=== PATIENT | female | born 1975 | race Caucasian/White ===

== ENCOUNTER 2019-07-10 08:36 | Day surgery (SDC) | payer BC ==
[~2019-07-10 08:36] MED LIST: CEFAZOLIN 1 Gram 1 GM/50 ML BAG IVPB ONE; CEFAZOLIN 2 Gram 2 GM/50 ML BAG IVPB ONE; FAMOTIDINE 20MG TABLET PO ONE; MECLIZINE 25 MG TABLET PO SCH; METOCLOPRAMIDE 10 MG TABLET PO ONE; SCOPOLAMINE 1 PATCH TDSY TD ONE; VANCOMYCIN 1GM/200ML PREMIX 1 GM/200 ML PIGGYBACK IVPB ONE
[2019-07-10] MEDS ORDERED: PROPOFOL 10 MG/ML VIAL IV ONE ×2 (08:37)
[2019-07-10] MEDS ORDERED: DEXAMETHASONE 4 MG/ML 1ML VIAL IVP ONE (08:37)
[2019-07-10] MEDS ORDERED: LIDOCAINE 2% MDV (20MG/ML) 20ML VIAL IV ONE ×2 (08:37)
[2019-07-10] MEDS ORDERED: MIDAZOLAM HCL 2MG/2ML VIAL IV ONE ×2 (08:37)
[2019-07-10] MEDS ORDERED: *PACU ONLY* KETAMINE HCL 10 MG/ML (20ML) VIAL IV ONE ×2 (08:37)
[2019-07-10] MEDS ORDERED: FENTANYL PF 100MCG/2ML VIAL IV ONE ×2 (08:37)
[2019-07-10] MEDS ORDERED: ROPIVACAINE HCL (NAROPIN) /PF 5MG/ML 20ML VIAL IV ONE (08:37)
[2019-07-10 09:34] LABS: ABO GROUP A; ANTIBODY SCREEN NEGATIVE (NEGATIVE); RH TYPE POSITIVE
[2019-07-10] MEDS ORDERED: RINGERS SOLUTION,LACTATED 1,000 ML IV ONE ×3 (09:40→12:52)
[2019-07-10] MEDS ORDERED: TRANEXAMIC ACID 1,000 MG/10 ML ML IU ONE (11:20)
[2019-07-10] MEDS ORDERED: TRANEXAMIC ACID 1,000 MG/10 ML ML IV ONE (11:20)
[2019-07-10] MEDS ORDERED: BUPIVACAINE 0.5% W/EPI MPF 30 ML VIAL IU ONE (11:20)
[2019-07-10] MEDS ORDERED: ACETAMINOPHEN W/ CODEINE 300MG/60MG TABLET PO PRN ×2 (12:38)
[2019-07-10] MEDS ORDERED: NALOXONE 0.4 MG/1 ML VIAL IVP PRN (12:38)
[2019-07-10] MEDS ORDERED: AL HYDROX/MAG HYDROX 30ML UD PO PRN (12:38)
[2019-07-10] MEDS ORDERED: ONDANSETRON HCL IV 4 MG/2 ML VIAL IVP PRN ×2 (12:38→13:42)
[2019-07-10] MEDS ORDERED: HYDROMORPHONE HCL 2 MG/ML VIAL IM PRN (12:38)
[2019-07-10] MEDS ORDERED: ZOLPIDEM TARTRATE 5 MG TABLET PO PRN (12:38)
[2019-07-10] MEDS ORDERED: DIPHENHYDRAMINE HCL 25 MG CAPSULE PO PRN (12:38)
[2019-07-10] MEDS ORDERED: MAGNESIUM HYDROXIDE 30 ML UDC PO PRN (12:38)
[2019-07-10] MEDS ORDERED: KETOROLAC 30 MG/ML VIAL IVP PRN (12:38)
[2019-07-10] MEDS ORDERED: TRAMADOL HCL 50 MG TABLET PO PRN (12:38)
[2019-07-10] MEDS ORDERED: ACETAMINOPHEN 325 MG TAB PO PRN (12:38)
[2019-07-10] MEDS ORDERED: BISACODYL 10 MG SUPP RC PRN (12:38)
[2019-07-10] MEDS ORDERED: FENTANYL CITRATE/PF (PACU) 50 MCG/ML VIAL IVP PRN (13:42)
[2019-07-10] MEDS ORDERED: HYDROMORPHONE HCL 2 MG/ML VIAL IVP PRN (13:42)
[2019-07-10] MEDS: HYDROCODONE/APAP 10/325 TABLET PO PRN ×4 (15:01→23:58)
[2019-07-10] MEDS ORDERED: HYDROCHLOROTHIAZIDE 25 MG TABLET PO SCH (15:30)
[2019-07-10] MEDS ORDERED: LOSARTAN POTASSIUM 25 MG TABLET PO SCH (15:30)
--- NOTE | 2019-07-10 17:06 | Rehab Evaluation ---
Patient Information - Patient Information Diagnosis: R Knee DJD Ordered Treatment: PT Evaluate and Treat Status: Initial Evaluation Surgery: Yes (R TKA) Date of Surgery: 07/10/19 Past Medical/Surgical Hx: PAST MEDICAL/SURGICAL HISTORY Past Surgical History AVIS UTERINE ABLATION D AND C PMH - Respiratory Hx Respiratory Disorders Yes Hx Bronchitis Yes Hx of SOB Yes: WITH EXERTION D/T WEIGHT PMH - Cardiovascular Hx Cardiovascular Disorders Yes Hx Edema Yes: LE'S Hx Hypertension Yes: ON MEDS WITH GOOD CONTROL Exercise Tolerance Fair PMH - Neuro Hx Neurological Disorders Yes Hx Dizziness Yes: VERTIGO Hx Headaches Yes: WITH VERTIGO PMH - GI Hx Gastrointestinal Disorders Yes Hx Gastroesophageal Reflux Yes: AT TIMES PMH - Hx Genitourinary Disorders Yes Comment: PT HAD ABLATION AND D AND C PMH - Endocrine Hx Endocrine Disorders No PMH - Musculoskeletal Hx Musculoskeletal Disorders Yes Hx Arthritis Yes: KNEES PMH - Psych Hx Psychiatric Problems No PMH - Hematology/Oncology Hx Hematology/Oncology Yes Disorders Hx Anemia Yes: HX OF BEFORE UTERINE ABLATION Hx Bruising Yes: BRUISES EASILY Premorbid Status: Detail (Patient was independent in ADLs prior to surgery.) Social History: Detail (Patient lives in a 2-story home with her significant other. She said that she will be staying in the living room for a couple of days instead of using her bathroom and bedroom upstairs. There is a flight of 13 stairs to the upstairs and 3 stairs to enter. There are no railings at the entrance. There is a half bath downstairs and a full bath upstairs. Patient stated that she will use the half bath downstairs when she first returns home to wash up. In the upstairs bathroom there is a tub/shower combination with no grab bars or hand held shower head. There is a standard height toilet in both bathrooms. In the half bath she said that there is the counter and sink for her to hang onto. She has a front-wheeled walker available to use. 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 Her family was in the room with her and the nursing staff was notified of her position.) Subjective Information - Subjective Information Per Patient (Patient reported that she had 4-5/10 pain in her R knee.) Objective Data - Pain Pain Present: Yes (R knee) Pain Scale Used: Numeric (1 - 10) (4-5/10) - Mental Status Patient Orientation: Oriented x3 - Visual Perception Appears within normal limits for therapeutic activities - ROM Not within normal limits (R knee ROM is limited as expected s/p R TKA procedure. R hip and ankle, and L LE AROM is within normal limits for functional activities.) - Strength/Tone Not within normal limits (R knee strength is limited as expected s/p R TKA procedure. R hip and ankle, and L LE strength is within normal limits for functional activities.) - Coordination Appears within normal limits for therapeutic activities - Bed Mobility Independent (Patient was independent in moving herself up in bed.) - Transfers Needs Assist (Patient required mod assist of 1 to move her R leg in and out of bed when moving from supine to sit and sit to supine. She was independent in sit to stand and stand to sit.) - Balance Balance Sitting: Good Balance Standing: Good - Sensation Intact - Gait Detail (Patient ambulated 20 feet to the bathroom and back to her bed with her front-wheeled walker and contact guard of 1.) Therapy Assessment - Therapy Assessment Detail (Patient presents with decreased R knee ROM, decreased R knee strength, and gait abnormalities that make her a good candidate for inpatient therapy. She will progress towards meeting her inpatient goals at the time of discharge tomorrow.) Problem List - Problem List Physical Therapy Problem List: Detail (1. Gait abnormalities 2. Decreased R knee strength 3. Decreased R knee ROM 4. R knee pain 5. Decreased tolerance for stairs) Goals - Goals Physical Therapy Goals: 1. Patient will be independent and demonstrate correct technique of HEP exercises to improve knee ROM and strength following discharge. 2. Patient will be able to ambulate household distances independently with a front-wheeled walker to get around her home. 3. Patient will be able to ascend and descend 3 stairs using correct technique with supervision to get in and out of her home. Prognosis - Prognosis Good Plan - Plan Physical Therapy Plan: Patient will be seen 1-2x, tomorrow, for gait training, stair training, HEP instruction, and therapeutic exercises and activities.
[2019-07-10] MEDS: POTASSIUM CHLORIDE/D5-0.9%NACL 20 MEQ/1,000 ML BAG IV SCH ×2 (19:52→21:32)
[2019-07-10] MEDS: CEFAZOLIN 2 Gram 2 GM/50 ML BAG IVPB SCH (19:56)
[2019-07-10] MEDS: DOCUSATE SODIUM 100 MG CAPSULE PO SCH (21:32)
[2019-07-11] MEDS: CEFAZOLIN 2 Gram 2 GM/50 ML BAG IVPB SCH ×3 (04:13→12:00)
[2019-07-11] MEDS: HYDROCODONE/APAP 10/325 TABLET PO PRN ×3 (04:23→13:03)
[2019-07-11] MEDS: POTASSIUM CHLORIDE/D5-0.9%NACL 20 MEQ/1,000 ML BAG IV SCH (05:14)
[2019-07-11 07:09] LABS: HEMATOCRIT 38.9 % (35.0-47.0); HEMOGLOBIN 12.2 gm/dl (11.6-16.0)
[2019-07-11 07:33] LABS: BLOOD UREA NITROGEN 9 mg/dL (6-20); CREATININE 0.9 mg/dL (0.5-0.9); EST GLOMERULAR FILTRATION RATE > 60 mL/min; GLUCOSE,RANDOM 120 mg/dL (74-109)
--- NOTE | 2019-07-11 08:10 | Operative Note ---
DATE OF SURGERY: 07/10/2019 PREOPERATIVE DIAGNOSIS: End-stage arthrosis of the right knee. POSTOPERATIVE DIAGNOSIS: End-stage arthrosis of the right knee. OPERATION: Cemented right total knee arthroplasty using De Leon and Nephew components with a size 4 Oxinium Legion femoral component, a size 3 stemmed tibia baseplate, an 11 mm lipped tibial insert. The patella was not resurfaced because it was too small. STAFF SURGEON: Jose Nazario MD ANESTHESIA: Spinal. PREPARATION: Chloraprep. INDIVIDUAL CONSIDERATIONS: This lady was morbidly obese with a body mass index of above 50%. This required extra time and it was very difficult to close and very difficult to expose. JAILKEEPER: Mrs. Olinda Liang PROCEDURE: The patient was taken to the operating room, placed supine on the operating room table. She had a successful induction of a spinal anesthetic. The right lower extremity was prepped and draped in the usual fashion. The limb was elevated and tourniquet was inflated to 250 mmHg. The patient had a midline approach to the knee. Sharp dissection carried down through skin and subcutaneous tissue. Small veins were coagulated with a Bovie. The subcu up top was almost 5 inches thick. A medial arthrotomy was performed. The patella was everted and the knee was flexed. The patient had exposed bone primarily in medial compartment, some in the notch. Patella had chondromalacia but it was otherwise intact but was small. Fat pad was resected, ACL was sacrificed, and provisional anterior meniscectomies were performed. The capsule was released from the medial proximal tibia. The initial femoral pilot boat deckhand hole was then made freehand. The intramedullary femoral cutting jig was placed. It was cut in 7.0 degrees of valgus and adjusted for rotation and secured with pins for a 10 mm resection. The initial transverse cut was then made. The skin guide was placed in the anterior and posterior pilot boat deckhand holes. It was found that a size 4 would be appropriate. The anterior and posterior cuts were made followed by chamfer cuts. The guide that was used was in 3 degrees of external rotation for the lesion. After removing osteophytes, and a size 4 trial was placed and found to fit well. The tibia was brought forward, and the remainder of the meniscal remnants removed with a Bovie. The extraarticular tibial cutting jig was placed. It was cut in neutral with a 3-degree AP slope. It was set for a 9 mm resection keyed off the high lateral side and secured with pins. When cutting the tibia, care was taken to preserve the PCL insertion on the tibia. It was found that a size 3 trial fit appropriately. It was adjusted for rotation and secured with pins. With the 11 mm trial and femoral trial, there was excellent motion and stability. Ligamentous balance and rotation alignment were thought to be normal. Femoral pilot boat deckhand holes were impacted and the tibial keel stamp was impacted, and these trial components were removed. The patient had a sufficient PCL. The tourniquet was let down and hemostasis was obtained with a Bovie. The tourniquet was then placed back up again. The knee was then thoroughly irrigated out with pulsatile Betadine and saline to remove any visual or palpable debris. The patient's patella was too small to cut. She was morbidly obese and young and I thought that it was just not going to hold up long-term. She was young and if it needed to be done years from now, maybe after she lost some weight in her 50s, maybe it could be done but at this point it was going to be impossible to safely resurface it. After the bony surfaces were dried, a size 3 stemmed tibia baseplate was cemented into place followed by impaction of the 11 mm lipped highly crosslinked tibial insert followed by cementing in the size 4 Oxinium femur. The implant surfaces were compressed, excess cement was removed. After the cement had set, there was excellent motion and stability. Ligamentous balance, rotation alignment, and patellofemoral tracking were normal. No lateral release was required. Thorough irrigation again to remove any visual or palpable debris. Tourniquet was let down. Hemostasis was obtained with a Bovie. The periosteum and subcu were infiltrated with 30 mL of 0.5% Marcaine with epinephrine. The capsule was then closed with a running #2 quill, subcu was closed with running multiple layers of 0 quill, skin was closed with faheem. I mixed 1 g of tranexamic acid with 30 mL of saline and injected into the knee through a sterile 18-gauge needle, and a sterile bulky compressive VA-type dressing was applied. The patient tolerated the procedure well. Needle and sponge counts were correct. Estimated blood loss was 200 mL. We will check a hemoglobin in the morning. There were no complications. [facility]
--- NOTE | 2019-07-11 08:31 | Rehab Evaluation ---
Patient Information - Patient Information Diagnosis: R Knee DJD Ordered Treatment: OT Evaluate and Treat Status: Initial Evaluation Surgery: Yes (R TKA) Date of Surgery: 07/10/19 Past Medical/Surgical Hx: PAST MEDICAL/SURGICAL HISTORY Past Surgical History AVIS UTERINE ABLATION D AND C PMH - Respiratory Hx Respiratory Disorders Yes Hx Bronchitis Yes Hx of SOB Yes: WITH EXERTION D/T WEIGHT PMH - Cardiovascular Hx Cardiovascular Disorders Yes Hx Edema Yes: LE'S Hx Hypertension Yes: ON MEDS WITH GOOD CONTROL Exercise Tolerance Fair PMH - Neuro Hx Neurological Disorders Yes Hx Dizziness Yes: VERTIGO Hx Headaches Yes: WITH VERTIGO PMH - GI Hx Gastrointestinal Disorders Yes Hx Gastroesophageal Reflux Yes: AT TIMES PMH - Hx Genitourinary Disorders Yes Comment: PT HAD ABLATION AND D AND C PMH - Endocrine Hx Endocrine Disorders No PMH - Musculoskeletal Hx Musculoskeletal Disorders Yes Hx Arthritis Yes: KNEES PMH - Psych Hx Psychiatric Problems No PMH - Hematology/Oncology Hx Hematology/Oncology Yes Disorders Hx Anemia Yes: HX OF BEFORE UTERINE ABLATION Hx Bruising Yes: BRUISES EASILY Premorbid Status: Detail (Patient was independent with mobility and all IADLs prior to surgery.) Social History: Detail (Patient lives in a 2-story home with her significant other and 5 children. She said that she will be staying in the living room for a couple of days. She has 2 steps at the entrance and no railings. There is a half bath downstairs and a full bath upstairs. Patient stated that she will use the half bath downstairs when she first returns home to wash up. In the upstairs bathroom there is a tub/shower combination with no grab bars or hand held shower head. There is a standard height toilet in both bathrooms. In the half bath she said that there is the counter and sink for her to hang onto. She has a front- wheeled walker available to use. 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 Her family will be able to assist with all tasks following discharge.) Precautions: [place], Fall, Other (WBAT on R LE) - Time With Patient Total Time Spent With Patient (Min): 35 Treatment Procedures: Detail (OT eval low complexity) Subjective Information - Subjective Information Per Patient Objective Data - Pain Pain Present: Yes (-02/28) - Mental Status Patient Orientation: Oriented x3 - Visual Perception Appears within normal limits for therapeutic activities - ROM Within normal limits (Nigel UE AROM WNL) - Strength/Tone Within normal limits (Nigel UE strength WNL) - Coordination Appears within normal limits for therapeutic activities - Bed Mobility Independent (Ind with supine to sit) - Transfers Independent (Ind with sit to stand from EOB and toilet heights.) - Balance Balance Sitting: Good Balance Standing: Good - Sensation Intact - Gait Detail (Pt ambulating to bathroom with 2 wheeled walker and supervision.) - ADL's/IADL's Detail (Pt educated and able to demonstrate learning of modified LE dressing techniques including doffing briefs and donning sol sock (with assist), underwear, PJ bottoms and slip on tennis shoes. Reviewed kitchen and shower safety and modifications, pt verbalized understanding.) Therapy Assessment - Therapy Assessment Detail (Pt is Ind with modified LE dressing techniques.) Problem List - Problem List Physical Therapy Problem List: Detail (1. Gait abnormalities 2. Decreased R knee strength 3. Decreased R knee ROM 4. R knee pain 5. Decreased tolerance for stairs) Occupational Therapy Problem List: Detail (No current IP OT problems identified.) Goals - Goals Physical Therapy Goals: 1. Patient will be independent and demonstrate correct technique of HEP exercises to improve knee ROM and strength following discharge. 2. Patient will be able to ambulate household distances independently with a front-wheeled walker to get around her home. 3. Patient will be able to ascend and descend 3 stairs using correct technique with supervision to get in and out of her home. Occupational Therapy Goals: No current IP OT goals identified. Prognosis - Prognosis Good Plan - Plan Physical Therapy Plan: Patient will be seen 1-2x, tomorrow, for gait training, stair training, HEP instruction, and therapeutic exercises and activities. Occupational Therapy Plan: No further IP OT recommended. Pt discharged from OT services. Thank you for this referral.
[2019-07-11] MEDS: DOCUSATE SODIUM 100 MG CAPSULE PO SCH (09:10)
[2019-07-11] MEDS ORDERED: FERROUS SULFATE 325 MG TAB PO SCH (10:00)
[2019-07-11] MEDS ORDERED: RIVAROXABAN 10 MG TABLET PO SCH (10:00)
--- NOTE | 2019-07-11 12:10 | Physical Therapy Tx Note ---
Physical Therapy Tx Note - Treatment Note Tolerated: Good Total Time Spent With Patient: 30 Physical Therapy Tx Note: Detail (Patient reported 7/10 pain in her R knee. She ambulated 60 feet using the front-wheeled walker independently using WBAT on the R LE. She completed stair training over 3 stairs with good technique with supervision. Patient required minimal assistance with her R LE moving it into bed. In her room, her HEP was reviewed with her and patient demonstrated good technique and understanding of all exercises. The patient was left in bed with her call light and bedside table within reach. The nursing staff was notified of her position.) Physical Therapy Problem List: Detail (1. Gait abnormalities 2. Decreased R knee strength 3. Decreased R knee ROM 4. R knee pain 5. Decreased tolerance for stairs) Physical Therapy Goals: 1. Patient will be independent and demonstrate correct technique of HEP exercises to improve knee ROM and strength following discharge. GOAL MET. 2. Patient will be able to ambulate household distances independently with a front-wheeled walker to get around her home. GOAL MET. 3. Patient will be able to ascend and descend 3 stairs using correct technique with supervision to get in and out of her home. GOAL MET Physical Therapy Plan: Patient has met all of her inpatient therapy goals. She is scheduled for home therapy following discharge.
== END 2019-07-11 13:15 | disposition home or self-care (01) ==
LOC: SUR 08:36 → MEDSURG 14:21 → SUR 07-11 13:15
PROVIDERS: ATTEND Orthopaedic Surgery
DX: M17.11 Unilateral primary osteoarthritis, right knee (principal); I10 Essential (primary) hypertension; E66.01 Morbid (severe) obesity due to excess calories; Z68.43 Body mass index [BMI] 50.0-59.9, adult
CPT/HCPCS: 76942; 80048; 81025; 85014; 85018; 86850; 86900; 86901; C1776; J2405; J3370; J7120

== ENCOUNTER 2019-10-09 06:41 | Day surgery (SDC) | payer BC ==
[~2019-10-09 06:41] MED LIST changes: +CELECOXIB 100 MG CAPSULE PO ONE; -MECLIZINE 25 MG TABLET PO SCH
[2019-10-09] MEDS ORDERED: MIDAZOLAM HCL 2MG/2ML VIAL IV ONE (06:42)
[2019-10-09] MEDS ORDERED: DEXAMETHASONE 4 MG/ML 1ML VIAL IVP ONE (06:42)
[2019-10-09] MEDS ORDERED: LIDOCAINE 2% MDV (20MG/ML) 20ML VIAL IV ONE (06:42)
[2019-10-09] MEDS ORDERED: ONDANSETRON HCL IV 4 MG/2 ML VIAL IVP ONE (06:42)
[2019-10-09] MEDS ORDERED: ROPIVACAINE HCL (NAROPIN) /PF 5MG/ML 20ML VIAL IV ONE (06:42)
[2019-10-09] MEDS ORDERED: PROPOFOL 10 MG/ML VIAL IV ONE (06:42)
[2019-10-09 06:58] LABS: URINE APPEARANCE SL CLOUDY; URINE BILIRUBIN NEGATIVE (NEGATIVE); URINE BLOOD NEGATIVE (NEGATIVE); URINE COLOR YELLOW; URINE GLUCOSE (UA) NEGATIVE (NEGATIVE); URINE KETONE NEGATIVE (NEGATIVE); URINE LEUKOCYTE ESTERASE NEGATIVE (NEGATIVE); URINE NITRITE POSITIVE (NEGATIVE); URINE PROTEIN NEGATIVE (NEGATIVE); URINE UROBILINOGEN 0.2 E.U./dL (0.20 - 1.00)
[2019-10-09] MEDS ORDERED: RINGERS SOLUTION,LACTATED 1,000 ML IV ONE ×3 (07:00→11:18)
[2019-10-09 07:04] LABS: URINE BACTERIA 3+; URINE RBC 0 - 2 (NONE SEEN)
[2019-10-09 07:40] LABS: ABO GROUP A; ANTIBODY SCREEN NEGATIVE (NEGATIVE); RH TYPE POSITIVE
[2019-10-09] MEDS ORDERED: TRAMADOL HCL 50 MG TABLET PO PRN (10:29)
[2019-10-09] MEDS ORDERED: DIPHENHYDRAMINE HCL 25 MG CAPSULE PO PRN (10:29)
[2019-10-09] MEDS ORDERED: BISACODYL 10 MG SUPP RC PRN (10:29)
[2019-10-09] MEDS ORDERED: KETOROLAC 30 MG/ML VIAL IVP PRN (10:29)
[2019-10-09] MEDS ORDERED: ACETAMINOPHEN 325 MG TAB PO PRN (10:29)
[2019-10-09] MEDS ORDERED: ONDANSETRON HCL IV 4 MG/2 ML VIAL IVP PRN (10:29)
[2019-10-09] MEDS ORDERED: MAGNESIUM HYDROXIDE 30 ML UDC PO PRN (10:29)
[2019-10-09] MEDS ORDERED: NALOXONE 0.4 MG/1 ML VIAL IVP PRN (10:29)
[2019-10-09] MEDS ORDERED: ZOLPIDEM TARTRATE 5 MG TABLET PO PRN (10:29)
[2019-10-09] MEDS ORDERED: HYDROMORPHONE HCL 2 MG/ML VIAL IM PRN (10:29)
[2019-10-09] MEDS ORDERED: ACETAMINOPHEN W/ CODEINE 300MG/60MG TABLET PO PRN ×2 (10:29)
[2019-10-09] MEDS ORDERED: AL HYDROX/MAG HYDROX 30ML UD PO PRN (10:29)
[2019-10-09] MEDS ORDERED: TRANEXAMIC ACID 1,000 MG/10 ML ML IV ONE (10:39)
[2019-10-09] MEDS ORDERED: BUPIVACAINE 0.5% W/EPI MPF 30 ML VIAL SQ ONE (10:39)
[2019-10-09] MEDS ORDERED: TRANEXAMIC ACID 1,000 MG/10 ML ML IU ONE (10:39)
[2019-10-09] MEDS ORDERED: POTASSIUM CHLORIDE/D5-0.9%NACL 20 MEQ/1,000 ML BAG IV SCH (11:30)
[2019-10-09] MEDS: HYDROCODONE/APAP 10/325 TABLET PO PRN ×3 (13:33→23:07)
--- NOTE | 2019-10-09 14:46 | Rehab Evaluation ---
Patient Information - Patient Information Diagnosis: L knee DJD Ordered Treatment: PT Evaluate and Treat Status: Initial Evaluation Surgery: Yes (L TKA) Date of Surgery: 10/09/19 Past Medical/Surgical Hx: PAST MEDICAL/SURGICAL HISTORY Past Surgical History RTKA 07-10-19 AVIS UTERINE ABLATION D AND C PMH - Respiratory Hx Respiratory Disorders Yes Hx Bronchitis Yes Hx of SOB Yes: WITH EXERTION D/T WEIGHT PMH - Cardiovascular Hx Cardiovascular Disorders Yes Hx Edema Yes: LE'S Hx Hypertension Yes: ON MEDS WITH GOOD CONTROL Exercise Tolerance Fair PMH - Neuro Hx Neurological Disorders Yes Hx Dizziness Yes: VERTIGO Hx Headaches Yes: WITH VERTIGO PMH - GI Hx Gastrointestinal Disorders Yes Hx Gastroesophageal Reflux Yes: AT TIMES PMH - Hx Genitourinary Disorders Yes Comment: PT HAD ABLATION AND D AND C PMH - Endocrine Hx Endocrine Disorders No Hx Diabetes No Hx Thyroid Disease No PMH - Musculoskeletal Hx Musculoskeletal Disorders Yes Hx Arthritis Yes: KNEES PMH - Psych Hx Psychiatric Problems No PMH - Hematology/Oncology Hx Hematology/Oncology Yes Disorders Hx Anemia Yes: HX OF BEFORE UTERINE ABLATION Hx Bruising Yes: BRUISES EASILY Premorbid Status: Detail (The patient was independent with all mobility prior to surgery.) Social History: Detail (The patient lives with significant other in two story house with 2 1/2 steps at the garage enterance and a cabinet and other hand hold to push up on. The bathroom is equipped with a tub/shower combination, shower seat, standard height toilet. No grab bars were present in the bathroom. The patient has a front wheeled walker.) Precautions: [place], Fall, Other (WBAT on the L LE.) - Time With Patient Total Time Spent With Patient (Min): 30 Treatment Procedures: Detail (Initial Evaluation, low complexity) Subjective Information - Subjective Information Per Patient (The patient has minimal complaints of left knee pain.) Objective Data - Mental Status Patient Orientation: Oriented x3 - Visual Perception Appears within normal limits for therapeutic activities - ROM Not within normal limits (The patient's L knee AROM is limited s/p surgery. All other LE AROM is WNL.) - Strength/Tone Other (The patient's LE strength was not tested however is functional.) - Bed Mobility Independent (The patient was independent supine to and from sit transfer with minimal PA supporting L LE only with sit to supine.) - Transfers Independent (The patient was independent with sit to and from stand transfer and toilet transfer.) - Balance Balance Sitting: Good Balance Standing: Good - Gait Detail (The patient ambulated with front wheeled walker a distance of 7.5 feet x1 and 100 feet x 1 with supervision for safety only WBAT on the L LE.) Therapy Assessment - Therapy Assessment Detail (The patient was independent with bed mobility and transfers and ambulation with supervision for safety. The patient will be seen for 1-2 PT sessions to met inpt. PT goals.) Problem List - Problem List Physical Therapy Problem List: Detail (Decreased L knee AROM and L LE strength.) Goals - Goals Physical Therapy Goals: 1) The patient will be independent with TKA HEP. 2) The patient will ambulate on stairs safely using proper technique with supervision for safety. Prognosis - Prognosis Good Plan - Plan Physical Therapy Plan: PT for 1-2 sessions for gait training on stairs and instruction in HEP.
--- NOTE | 2019-10-09 14:46 | Rehab Evaluation ---
Patient Information - Patient Information Diagnosis: Left TKA Ordered Treatment: OT Evaluate and Treat Status: Initial Evaluation Surgery: Yes (Left TKA) Date of Surgery: 10/09/19 Past Medical/Surgical Hx: PAST MEDICAL/SURGICAL HISTORY Past Surgical History RTKA 07-10-19 AVIS UTERINE ABLATION D AND C PMH - Respiratory Hx Respiratory Disorders Yes Hx Bronchitis Yes Hx of SOB Yes: WITH EXERTION D/T WEIGHT PMH - Cardiovascular Hx Cardiovascular Disorders Yes Hx Edema Yes: LE'S Hx Hypertension Yes: ON MEDS WITH GOOD CONTROL Exercise Tolerance Fair PMH - Neuro Hx Neurological Disorders Yes Hx Dizziness Yes: VERTIGO Hx Headaches Yes: WITH VERTIGO PMH - GI Hx Gastrointestinal Disorders Yes Hx Gastroesophageal Reflux Yes: AT TIMES PMH - Hx Genitourinary Disorders Yes Comment: PT HAD ABLATION AND D AND C PMH - Endocrine Hx Endocrine Disorders No Hx Diabetes No Hx Thyroid Disease No PMH - Musculoskeletal Hx Musculoskeletal Disorders Yes Hx Arthritis Yes: KNEES PMH - Psych Hx Psychiatric Problems No PMH - Hematology/Oncology Hx Hematology/Oncology Yes Disorders Hx Anemia Yes: HX OF BEFORE UTERINE ABLATION Hx Bruising Yes: BRUISES EASILY Premorbid Status: Detail (Pt had R TKA about 3 months ago and is still working on ROM for that knee. She was ambulating w/o device and was independent with all mobility and ADLs prior to recent sx.) Social History: Detail (Pt lives with spouse in a 2-story house but will not need to use the second story right away. There are 2 1/2 steps to enter house with no handrails but with a garage cabinet she can use to hold onto. Bathroom consists of a tub/shower combo with no grab bars and standard height toilet. Pt states that she will be going to her sister's house to use her shower which is a walk in shower with shower seat. She states this is what she did for her last knee sx and it worked out good. Pt's spouse will be staying home from work for 2 weeks in order to assist with any limitations to independence with ADLs she may have. Pt also states that she has very helpful children who help thread pants over feet or tie shoes when needed like they did for the last knee sx.) Precautions: [place], Fall, Other (WBAT LLE) - Time With Patient Total Time Spent With Patient (Min): 20 Treatment Procedures: Detail (OT eval low) Objective Data - Pain Pain Present: Yes Pain Intensity: 0 Pain Scale Used: Numeric (1 - 10) - Mental Status Patient Orientation: Oriented x3 - Visual Perception Appears within normal limits for therapeutic activities - ROM Within normal limits (BUE's although pt does say that she has bilateral shoulder rotator cuff issues. Pt states she doesn't have any difficulty using walker with her shoulder issues.) - Strength/Tone Within normal limits (BUE's) - Coordination Appears within normal limits for therapeutic activities (Min A with supporting Left leg off bed when moving supine>short sit edge of bed. Pt was independent with short sit edge of bed > supine and scooting up in bed.) - Bed Mobility Needs Assist - Transfers Needs Assist (CGA for safety due to patient's nearness of sx. Independent sit<>stand toilet t/f.) - Balance Balance Sitting: Good - Gait Detail (Pt amb from bed to bathroom and back with 2WW and CGA for safety.) - ADL's/IADL's Detail (Pt was educated on, provided a handout on, and demonstrated understanding of modified lower body drsg techniques. Pt was independent with [facility] doff and removal and independent with underpants thread over feet, pull to above knee, and machine tack puller hips in standing. She is familiar with modified drsg techniques from just having had her right TKA completed 3 months ago. Pt refused don of pants at this time due to "being too hot," but is able to verbalize process. Pt will have help from spouse and children for sock/shoe don at home. She was educated on equipment available if she finds she has difficulty at home. Pt expressed interest in getting a packaging tech in order to pick things up that have fallen in the middle of the night when spouse is away at work. Pt was provided information and will let OT know if she would like to purchase a packaging tech. OT will check on patient tomorrow if still here in case she has any questions with pants don. Pt amb into bathroom with CGA for safety and 2WW to complete toileting. Independent toilet t/f and indpendent with toilet H and hand washing standing at sink.) Therapy Assessment - Therapy Assessment Detail (Pt educated on and provided handouts on modified lower body drsg techniques and able to demonstrate understanding. She will follow up with OT tomorrow if she would like to purchase a packaging tech.) Patient Education - Patient Education Teaching Topic: Other (modified lower body drsg techniques) Response: Return Demonstration Teaching Method: Discussion Teaching Recipient: Patient, Significant Other Barriers To Learning: None Prognosis - Prognosis Good Plan - Plan Occupational Therapy Plan: No further inpatient OT needed at this time.
[2019-10-09] MEDS: CEFAZOLIN 2 Gram 2 GM/50 ML BAG IVPB SCH (19:07)
[2019-10-09] MEDS: DOCUSATE SODIUM 100 MG CAPSULE PO SCH (23:04)
[2019-10-10] MEDS: CEFAZOLIN 2 Gram 2 GM/50 ML BAG IVPB SCH ×2 (02:11→10:18)
[2019-10-10] MEDS: HYDROCODONE/APAP 10/325 TABLET PO PRN ×3 (03:10→13:26)
[2019-10-10 07:13] LABS: HEMATOCRIT 34.5 % (35.0-47.0); HEMOGLOBIN 10.5 gm/dl (11.6-16.0)
[2019-10-10 07:45] LABS: BLOOD UREA NITROGEN 13 mg/dL (6-20); CREATININE 0.9 mg/dL (0.5-0.9); EST GLOMERULAR FILTRATION RATE > 60 mL/min; GLUCOSE,RANDOM 120 mg/dL (74-109)
--- NOTE | 2019-10-10 09:21 | Operative Note ---
DATE OF SURGERY: 10/09/2019 PREOPERATIVE DIAGNOSIS: End-stage arthrosis of the left knee. POSTOPERATIVE DIAGNOSIS: End-stage arthrosis of the left knee. OPERATION: Cemented left total knee arthroplasty using De Leon [employer] Nephew components with a size 4 Oxinium Legion femur, a size 3 stemmed tibia baseplate, and a 9 mm lipped highly crosslinked tibial insert. The patella was not resurfaced because it was too thin. STAFF SURGEON: Jose Nazario MD ANESTHESIA: Spinal. PREPARATION: Chloraprep. INDIVIDUAL CONSIDERATIONS: This lady was morbidly obese with a body mass index of about 50%. This required a very difficult exposure and very difficult closure because of the thick soft tissue envelope and difficulty positioning. PROCEDURE: The patient was taken to the operating room, placed supine on the operating room table. She had a successful induction of a spinal anesthetic. The left lower extremity was prepped and draped in the usual fashion. The limb was elevated and tourniquet was inflated to 325 mmHg. Sharp dissection carried down through skin and abundant soft tissue and subcutaneous tissue in some areas almost 4 inches. Hemostasis was obtained with a Bovie. A medial arthrotomy was performed. The patella was everted and the knee was flexed. The patient had exposed bone medially. Fat pad was resected, ACL was sacrificed, and provisional anterior meniscectomies were performed. The capsule was released from the medial proximal tibia. The initial femoral jet pilot hole was then made freehand. The intramedullary femoral cutting jig was placed. It was cut in 7.0 degrees of valgus and adjusted for rotation and secured with pins for a 10 mm resection. The initial transverse cut was then made. The skin guide was placed in the anterior and posterior cutting holes. It was cut in 3 degrees of external rotation. The anterior and posterior cuts followed by chamfer cuts were made. Osteophytes removed, and a size 4 trial was placed and found to fit well. The tibia was brought forward, and the remainder of the meniscal remnants removed with a Bovie. The extraarticular tibial cutting jig was placed. It was cut in neutral with a 3-degree AP slope. It was set for a 9 mm resection keyed off the high lateral side and secured with pins. When cutting the tibia, care was taken to preserve the PCL insertion on the tibia. After removing osteophytes, I could fit a size 3. It was adjusted for rotation and secured with pins. With a 9 mm trial and femoral trial, there was excellent motion and stability. Ligamentous balance and rotation alignment were thought to be normal. Femoral jet pilot holes were impacted and the tibial keel stamp was impacted, and these trial components were removed. The patient had the tourniquet let down briefly to get bleeders posteriorly and then placed back up again. The patient had a very thin patella and the fact that this lady was also morbidly obese precluded me even considering patella resurface because it would most definitely crack. I then thoroughly irrigated out the knee with pulsatile Betadine and saline to remove any visual or palpable debris. Bony surfaces were dried and then dried with a CarboJet prior to cementing. A size 3 stemmed tibia baseplate was cemented into place followed by impaction of the 9 mm lipped highly crosslinked tibial insert followed by cementing in the size 4 Oxinium femur. The implant surfaces were compressed, excess cement was removed. After the cement had set, there was excellent motion and stability. Ligamentous balance, rotation alignment, and patellofemoral tracking were normal. No lateral release was required. Again thorough irrigation to remove any visual or palpable debris. Tourniquet was let down. Hemostasis was obtained with a Bovie. The skin, subcu, and periosteum were infiltrated with 30 mL of 0.5% Marcaine with epinephrine. The capsule was then closed with a running #2 quill, subcu was closed in layers with multiple layers of 0 quill, skin was closed with faheem. Then 1 g of tranexamic acid was mixed with 30 mL of saline and injected into the knee through a sterile 18-gauge needle, and a sterile bulky compressive VA-type dressing was applied. The patient tolerated the procedure well. Needle and sponge counts were correct. Estimated blood loss was minimal, and she was taken back to recovery in good condition. There were no complications. ARIANNA
[2019-10-10] MEDS ORDERED: ASPIRIN 81 MG TABEC PO SCH (10:00)
[2019-10-10] MEDS ORDERED: HYDROCHLOROTHIAZIDE 25 MG TABLET PO SCH (10:00)
[2019-10-10] MEDS ORDERED: RIVAROXABAN 10 MG TABLET PO SCH (10:00)
[2019-10-10] MEDS ORDERED: LOSARTAN POTASSIUM 25 MG TABLET PO SCH (10:00)
[2019-10-10] MEDS ORDERED: FERROUS SULFATE 325 MG TAB PO SCH (10:00)
[2019-10-10] MEDS: DOCUSATE SODIUM 100 MG CAPSULE PO SCH (10:17)
--- NOTE | 2019-10-10 10:42 | Physical Therapy Tx Note ---
Physical Therapy Tx Note - Treatment Note Tolerated: Good Total Time Spent With Patient: 25 Physical Therapy Tx Note: Detail (The patient was in bed when PT arrived. The patient had minimal complaints L knee pain but did not rate pain using 0-10 pain scale. The patient ambulated with front wheeled walker 110 feet x 1 independently WBAT on L LE. The patient ambulated on stairs using two hand holds on one railing using proper technique independently, supervision for safety only. The patient's TKA HEP was reviewed including seated heel slides, quad sets, hamstring sets, gluteal sets, SLR and ankle pumps. Proper car transfer technique was also reviewed. The patient has met all inpt. PT goals and is discharged from inpt. PT.) Physical Therapy Problem List: Detail (Decreased L knee AROM and L LE strength.) Physical Therapy Goals: 1) The patient will be independent with TKA HEP.(Goal Met). 2) The patient will ambulate on stairs safely using proper technique with supervision for safety.(Goal Met) Physical Therapy Plan: The patient is discharged from inpt. PT and is to continue with outpatient PT.
== END 2019-10-10 14:53 | disposition home or self-care (01) ==
LOC: SUR 06:41 → MEDSURG 11:43 → SUR 10-10 14:53
PROVIDERS: ATTEND Orthopaedic Surgery
DX: M17.12 Unilateral primary osteoarthritis, left knee (principal); I10 Essential (primary) hypertension; E66.9 Obesity, unspecified; Z68.43 Body mass index [BMI] 50.0-59.9, adult
CPT/HCPCS: 76942; 80048; 81001; 81025; 85014; 85018; 86850; 86900; 86901; C1776; J1885; J2405; J3370; J3480; J7120